=== PATIENT | male | born 1985 | race American Indian/Alaskan Native ===

== ENCOUNTER 2021-08-22 10:21 | Outpatient (CLI) | payer OTHER ==
--- NOTE | 2021-08-22 11:57 | XRay Report ---
XR knee 1-2V LT INDICATION / CLINICAL INFORMATION: LEFT KNEE PAIN. COMPARISON: None available. FINDINGS: BONES/JOINT(S): No acute fracture or subluxation. 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 No significant degenerative change in the knee. SOFT TISSUES: No significant abnormality. ADDITIONAL FINDINGS: None. Signer Name: Gregorio Medina MD Signed: 08/22/2021 11:53 AM Workstation Name: [email or web address]
--- NOTE | 2021-08-22 11:58 | XRay Report ---
XR ankle 2V RT INDICATION / CLINICAL INFORMATION: RIGHT ANKLE PAIN. COMPARISON: None available. FINDINGS: BONES/JOINT(S): No acute fracture or subluxation. Previous internal fixation in the medial malleolus. No significant degenerative change. SOFT TISSUES: No significant abnormality. ADDITIONAL FINDINGS: None. Signer Name: Gregorio Medina MD Signed: 08/22/2021 11:54 AM Workstation Name: [email or web address]
--- NOTE | 2021-08-22 11:58 | XRay Report ---
XR forearm LT INDICATION / CLINICAL INFORMATION: LEFT FOREARM PAIN. COMPARISON: None available. FINDINGS: BONES/JOINT(S): No acute fracture or subluxation. Previous internal fixation of the radial and ulnar shafts. No appreciable hardware fracture or malalignment. SOFT TISSUES: No significant abnormality. ADDITIONAL FINDINGS: None. Signer Name: Gregorio Medina MD Signed: 08/22/2021 11:54 AM Workstation Name: [email or web address]
== END 2021-08-22 10:22 | disposition home or self-care (01) ==
LOC: XRAY 10:21
PROVIDERS: ATTEND Internal Medicine
DX: M25.562 Pain in left knee (principal); M25.571 Pain in right ankle and joints of right foot; M79.632 Pain in left forearm